=== PATIENT | female | born 1980 | race Caucasian/White ===

== ENCOUNTER 2017-02-05 16:06 | Emergency (ER) | payer OTHER ==
[~2017-02-05] VITALS: Ht 165.1 cm; Wt 77.2 kg
[~2017-02-05 16:06] MED LIST: ALBUTEROL1.25 MG/3 IH; COLACE100 MG PO; LORAZEPAM0.5 MG PO; MOTRIN600 MG PO; Motrin PO; NORCO 5/3251 TABLET PO; Percocet 5/325,Endoc PO; VALACYCLOVIR500 MG PO; VIIBRYD40 MG PO; ZOFRAN4 MG PO
[2017-02-05 16:35] VITALS: BP 117/77
[2017-02-05 18:18] LABS: ADD MIUA? NO; BILIRUBIN NEGATIVE; BLOOD NEGATIVE; COLOR STRAW ((YELLOW)); GLUCOSE (STRIP) NEGATIVE; KETONES NEGATIVE; LEUKOCYTES NEGATIVE; NITRITE NEGATIVE; PROTEIN (STRIP) NEGATIVE; SPECIFIC GRAVITY 1.005 (1.000-1.030); UCUL ADDED? NO; UROBILINOGEN 0.2 MG/DL (0.2-1.0)
[2017-02-05] MEDS ORDERED: NAPROSYN500 MG PO (18:41)
[2017-02-05] MEDS ORDERED: FLEXERIL10 MG PO (18:42)
[2017-02-05] MEDS ORDERED: LIDODERM 5% P1 PATCH TD (18:42)
== END 2017-02-05 19:03 | disposition home or self-care (01) ==
LOC: EME 16:06
PROVIDERS: Physician Assistant
DX: M54.5 Low back pain (principal); M79.605 Pain in left leg; M79.604 Pain in right leg; R06.7 Sneezing; Z85.3 Personal history of malignant neoplasm of breast; Z90.13 Acquired absence of bilateral breasts and nipples; Z87.891 Personal history of nicotine dependence
CPT/HCPCS: 81003; 99281; 99283